=== PATIENT | female | born 1965 | race African-American/Black ===

== ENCOUNTER 2016-10-11 13:24 | Emergency (ER) | payer BC ==
[~2016-10-11] VITALS: Ht 170.2 cm; Wt 75.3 kg
[2016-10-11] MEDS ORDERED: Bacitracin Oint UD TOPIC ONE (13:45)
[2016-10-11] MEDS ORDERED: Unasyn 3gm Inj IM ONE (13:45)
[2016-10-11] MEDS ORDERED: Lidocaine 1% Plain 30 ml INJ ONE (13:45)
[2016-10-11] MEDS ORDERED: Tetanus/Diptheria/Pertussis Vaccine 0.5ml Syr IM ONE (13:45)
[2016-10-11] MEDS ORDERED: BACITRACIN15 GM TOPIC (15:27)
[2016-10-11] MEDS ORDERED: IBUPROFEN600 MG ORAL (15:27)
[2016-10-11 15:56] VITALS: BP_SYST 103; BP_SYST 99; BP_DIAS 69; BP_DIAS 72
--- NOTE | 2016-10-11 22:13 | Emergency Room Report ---
History of Present Illness General Chief Complaint: Animal Bite Source: Patient Present Illness HPI The patient is a 51 yo F presenting for dog bite to the face. The patient states that this was an unknown dog. Occurred approximately 20 hours prior. She went to an urgent care today who told her to come to the ER for ancef and wound closure. She received a prescription from them for Augmentin. Pain is now described as a 7/10 dull ache to the R face. She denies radiating pain. She noticed clear discharge from the wound. She denies other symptoms such as fever , chills, rash Allergies: Coded Allergies: No Known Allergies (Unverified , 10/11/16) Patient History Past Medical History: see triage record Pertinent Family History: none Last Menstrual Period: na Now: No Reviewed Nursing Documentation: PMH: Agreed, PSxH: Agreed Nursing Documentation-PMH Past Medical History: No Stated History Review of Systems All Other Systems: negative except mentioned in HPI Physical Exam Vital Signs Date Time Temp Pulse Resp B/P Pulse Ox O2 Delivery O2 Flow Rate FiO2 10/11/16 13:34 98.2 78 18 99/69 99 Room Air Sp02 EP Interpretation: reviewed, normal General Appearance: no apparent distress, alert, GCS 15, non-toxic Head: normocephalic, atraumatic Eyes: bilateral eye PERRL, bilateral eye normal inspection ENT: hearing grossly normal, normal pharynx, no angioedema, normal voice Neck: full range of motion, supple/symm/no masses Respiratory: chest non-tender, lungs clear, normal breath sounds, speaking full sentences Musculoskeletal: back normal, gait/station normal, normal range of motion, non- tender Neurologic: alert, oriented x3, responsive, motor strength/tone normal, sensory intact, speech normal Psychiatric: judgement/insight normal, memory normal, mood/affect normal, no suicidal/homicidal ideation Skin: laceration - 2cm laceration to the R face over mandible Procedures Laceration/Wound Repair Laceration/Wound Repair : Consent: Verbal Wound Location: face Wound's Depth, Shape: superficial Wound Length (cm): 2 Wound Explored: clean Irrigated w/ Saline (ccs): 100 Betadine Prep?: Yes Anesthesia: 1% Lidocaine Volume Anesthetic (ccs): 3 Wound Debrided: minimal Wound Repaired With: sutures Suture Size/Type: 6:0, nylon Number of Sutures: 3 Layer Closure?: No Sterile Dressing Applied?: Yes Splint Applied?: No Sling Applied?: No Patient Tolerated: Well Complications: None Medical Decision Making PA Attestation Dr. Salazar is my supervising physician. Patient management was discussed with my supervising physician Diagnostic Impression: Primary Impression: Dog bite Qualified Codes: W54.0XXA - Bitten by dog, initial encounter ER Course The patient is a 51 yo F presenting for dog bite to the face. Ddx considered include but not limited to fracture, laceration, wound infection , avulsion, nerve damage PE: afebrile. NAD R face: 2cm laceration over the R mandible. Does not penetrate. No active bleeding. Multiple abrasions to the R cheek. The wound was irrigated with normal saline and cleaned with betadine. A 27g needle was used to administer 3mL of lidocaine w.o epi for local anasthesia. 3 sutures were placed with 6-0 Nylon. The wound was well approximated and the patient tolerated the procedure well. The wound was then cleaned and bacitracin was applied. She was given IM ancef and tetanus. She will take the augmentin as prescribed. SHe was informed this has a high chance of becoming infected and to return to the ER if she notices discharge from the wound, redness, swelling, fever, chills, or increased pain. Last Vital Signs Date Time Temp Pulse Resp B/P Pulse Ox O2 Delivery O2 Flow Rate FiO2 10/11/16 15:56 98.3 81 15 103/72 98 Room Air Status: improved Disposition: HOME, SELF-CARE Condition: Improved Scripts Bacitracin (Bacitracin) 28.4 Gm Oint...g. 1 APPLIC TOPIC THREE TIMES A DAY, #28 GM Prov: DANNA DUMONT P.A. 10/11/16 Ibuprofen* (MOTRIN*) 600 Mg Tablet 600 MG ORAL Q8H Y for For Pain, #30 TAB 0 Refills Prov: TERSALIMAANDANNA P.A. 10/11/16 Referrals: NOT CHOSEN [facility]/,REFERRING (PCP) Patient Instructions: Animal Bite Additional Instructions: I discussed my findings with the patient. All questions and concerns have been answered. Treatment and medication compliance have been addressed. I advised the patient that they need to follow up with PMD in 5 days for wound check and suture removal. If you are unable to see PMD, return to the ED in 5 days. Return to ED if pain remains or worsens, you notice discharge from the wound, the wound continues to bleed, the suture/s fall out, you notice a fever or chills, or for any reason. Patient is advised to keep the wound clean and apply an antibacterial ointment. Patient verbalized understanding of discharge instructions. Take the Augmentin prescribed to you by Dr. Woods as he directed. DANNA DUMONT Oct 11, 2016 22:13
== END 2016-10-11 15:57 | disposition home or self-care (01) ==
LOC: EMR 15:50
DX: S01.85XA Open bite of other part of head, initial encounter (principal); W54.0XXA Bitten by dog, initial encounter; Y93.9 Activity, unspecified; Y92.9 Unspecified place or not applicable; Z23 Encounter for immunization
CPT/HCPCS: 12011; 90471; 90715; 96372; 99284; J0295; J2001